=== PATIENT | male | born 1980 | race Caucasian/White ===

== ENCOUNTER 2019-08-22 18:40 | Inpatient (IN) | payer MEDICAID, OTHER ==
[~2019-08-22] VITALS: Ht 188 cm; Wt 146.0 kg
[2019-08-22] MEDS ORDERED: nitroGLYCERIN 0.4mg SUBLingual tab SL PRN (21:40)
[2019-08-22] MEDS ORDERED: potassium CL 10mEq/100ml bag 100 ML IV PRN ×2 (21:40)
[2019-08-22] MEDS ORDERED: ondansetron/PF 4mg/2ml inj IV PRN (21:40)
[2019-08-22] MEDS ORDERED: magnesium 2GM in 50ml NS 50 ML IV PRN (21:40)
[2019-08-22] MEDS ORDERED: mag hydrox/Alum hydrox/simeth 30ml oral suspension PO PRN (21:40)
[2019-08-22] MEDS ORDERED: magnesium 4gm in 100ml NS 100 ML IV PRN (21:40)
[2019-08-22] MEDS ORDERED: potassium Cl 20 mEq SR tablet PO PRN (21:40)
[2019-08-22] MEDS ORDERED: magnesium Cl slow-release 64mg tablet PO PRN (21:40)
[2019-08-22] MEDS ORDERED: magnesium hydroxide 30ml (MOM) UD suspension PO PRN (21:40)
[2019-08-22 21:45] VITALS: BP 96/67
[2019-08-22] MEDS ORDERED: FURO-149 PO (22:04)
[2019-08-22] MEDS ORDERED: RISP4TAB7 PO (22:04)
[2019-08-22] MEDS ORDERED: DOCU100C41 PO (22:04)
[2019-08-22] MEDS ORDERED: FLUT16SP2 BOTHNARES (22:04)
[2019-08-22] MEDS ORDERED: LISI2.5T2 PO (22:04)
[2019-08-22] MEDS ORDERED: PANT-47 PO (22:04)
[2019-08-22] MEDS ORDERED: PRED10TA23 PO (22:04)
[2019-08-22] MEDS ORDERED: METO25TA6 PO (22:04)
[2019-08-22] MEDS ORDERED: DIVA500T9 PO (22:04)
[2019-08-22] MEDS ORDERED: IBUP-1985 PO (22:04)
[2019-08-22] MEDS ORDERED: DIPH25CA52 PO (22:04)
[2019-08-22] MEDS ORDERED: DESM10SP NS (22:04)
[2019-08-22] MEDS ORDERED: MYCO500T PO (22:04)
[2019-08-22] MEDS ORDERED: docusate sod 100mg capsule PO PRN (23:10)
[2019-08-22] MEDS ORDERED: diphenhydrAMINE 25mg capsule PO PRN (23:10)
[2019-08-23 02:00] VITALS: BP 103/50
--- NOTE | 2019-08-23 02:42 | NUR ---
Dr. Gasca called and asked RN to add a Pro-BNP and PT/INR to pt AM draw. Also to make pt NPO for sx consult in AM.
[2019-08-23 05:37] LABS: ALBUMIN 3.1 G/DL (3.4-5.0); ANION GAP 5 (8-16); BLOOD UREA NITROGEN 22 MG/DL (7-18); BUN/CREATININE RATIO 8.9 (5.4-32.0); CALCIUM 9.9 MG/DL (8.5-10.1); CHLORIDE 93 MMOL/L (99-107); CREATININE 2.47 MG/DL (0.60-1.10); GLUCOSE 76 MG/DL (70-104); MAGNESIUM 2.1 MG/DL (1.5-2.4); POTASSIUM 3.4 MMOL/L (3.5-5.1); SODIUM 136 MMOL/L (135-145); TOTAL CARBON DIOXIDE 37.8 MMOL/L (24-32); eGFR 29 ML/MIN
[2019-08-23 06:00] VITALS: BP 132/63
--- NOTE | 2019-08-23 06:00 | NUR ---
Patient in room PCU 3012. I have received report from xenia pringle and had the opportunity to ask questions and assume patient care.
[2019-08-23 06:02] LABS: BASOPHILS % (AUTO) 0.6 % (0-1); EOSINOPHILS # (AUTO) 0.1 X10'3 (0-0.9); LYMPHOCYTES # (AUTO) 0.5 X10'3 (1.1-4.8); MEAN CORPUSCULAR VOLUME 76.4 FL (78-98); MONOCYTES # (AUTO) 0.8 X10'3 (0-0.9); NEUTROPHILS # (AUTO) 3.5 X10'3 (1.8-7.7); WHITE BLOOD COUNT 4.9 X10'3 (4.5-11.0)
[2019-08-23 06:05] LABS: EOSINOPHILS % (AUTO) 1.8 % (0-6); HEMATOCRIT 34.2 % (42.0-52.0); HEMOGLOBIN 11.1 g/dl (14.0-17.9); LYMPHOCYTES % (AUTO) 10.2 % (21-51); MEAN CORPUSCULAR HEMOGLOBIN 24.7 PG (27.0-31.0); MEAN CORPUSCULAR HGB CONC 32.4 g/dL (33.0-36.5); MEAN PLATELET VOLUME 9.1 FL (7.4-10.4); MONOCYTES % (AUTO) 16.8 % (2-12); NEUTROPHILS % (AUTO) 70.6 % (42-75); PLATELET COUNT 194 X10'3 (140-440); RED BLOOD COUNT 4.48 X10'6 (4.70-6.10); RED CELL DISTRIBUTION WIDTH 19.6 % (11.5-14.5)
--- NOTE | 2019-08-23 07:13 | NUR ---
Problems reprioritized. Patient report given, questions answered & plan of care reviewed with BRADY Faustin.
[2019-08-23] MEDS ORDERED: enoxaparin 40mg/0.4ml syringe SQ SCH (08:00)
[2019-08-23] MEDS: K and/or MAG REPLACEMENT MC SCH ×2 (08:00→20:00)
[2019-08-23] MEDS ORDERED: metoprolol tartrate 25mg tablet PO SCH (08:00)
[2019-08-23] MEDS: mycophenolate mofetil 250mg capsule PO SCH ×2 (08:59→20:16)
[2019-08-23] MEDS: furosemide 40mg tablet PO SCH (09:01)
[2019-08-23] MEDS: prednisone 10mg tablet PO SCH (09:02)
[2019-08-23] MEDS: pantoprazole 40mg Tablet.DR PO SCH (09:02)
[2019-08-23] MEDS: risperiDONE 2mg tablet PO SCH ×2 (09:03→20:15)
[2019-08-23] MEDS: lisinopril 2.5mg tablet PO SCH (09:04)
[2019-08-23] MEDS: potassium Cl 20 mEq SR tablet PO PRN ×3 (09:06→17:04)
[2019-08-23 11:00] VITALS: BP 88/47
[2019-08-23 15:00] VITALS: BP 89/68
--- NOTE | 2019-08-23 16:58 | NUR ---
PAGER ID: [phone] MESSAGE: DR. HANSEN, [id number]/MICHELLE, CAN I HAVE PT EVAL AND TREAT ORDER PLEASE? TIM [id number]. TY.
[2019-08-23 18:00] VITALS: BP 121/57
--- NOTE | 2019-08-23 18:15 | NUR ---
Problems reprioritized. Patient report given, questions answered & plan of care reviewed with BRADY RAY.
--- NOTE | 2019-08-23 18:50 | NUR ---
Patient in room PCU 3012. I have received report from Ramin ABREU and had the opportunity to ask questions and assume patient care.
[2019-08-23] MEDS: divalproex sod 250mg ER (24-hour) tablet PO SCH (20:15)
--- NOTE | 2019-08-23 20:27 | NUR ---
PAGER ID: [phone] MESSAGE: Emmett Gimenez [id number]: Pt reporting back pain. States he takes ibuprofen for it at home. -Kristina ABREU [id number]
[2019-08-23] MEDS ORDERED: traMADol 50MG tablet PO PRN (21:15)
[2019-08-23 22:00] VITALS: BP 103/46
[2019-08-24 02:00] VITALS: BP 105/56
[2019-08-24 05:13] LABS: ALBUMIN 3.1 G/DL (3.4-5.0); ANION GAP 5 (8-16); BASOPHILS % (AUTO) 0.7 % (0-1); BLOOD UREA NITROGEN 26 MG/DL (7-18); BUN/CREATININE RATIO 10.6 (5.4-32.0); CALCIUM 9.4 MG/DL (8.5-10.1); CHLORIDE 92 MMOL/L (99-107); CREATININE 2.46 MG/DL (0.60-1.10); EOSINOPHILS # (AUTO) 0.1 X10'3 (0-0.9); EOSINOPHILS % (AUTO) 1.4 % (0-6); GLUCOSE 63 MG/DL (70-104); HEMATOCRIT 34.7 % (42.0-52.0); HEMOGLOBIN 11.3 g/dl (14.0-17.9); LYMPHOCYTES # (AUTO) 0.5 X10'3 (1.1-4.8); LYMPHOCYTES % (AUTO) 10.2 % (21-51); MAGNESIUM 2.2 MG/DL (1.5-2.4); MEAN CORPUSCULAR HEMOGLOBIN 24.5 PG (27.0-31.0); MEAN CORPUSCULAR HGB CONC 32.6 g/dL (33.0-36.5); MEAN CORPUSCULAR VOLUME 75.3 FL (78-98); MEAN PLATELET VOLUME 9.2 FL (7.4-10.4); MONOCYTES # (AUTO) 1.1 X10'3 (0-0.9); MONOCYTES % (AUTO) 20.2 % (2-12); NEUTROPHILS # (AUTO) 3.6 X10'3 (1.8-7.7); NEUTROPHILS % (AUTO) 67.5 % (42-75); PLATELET COUNT 221 X10'3 (140-440); POTASSIUM 3.7 MMOL/L (3.5-5.1); SODIUM 132 MMOL/L (135-145); TOTAL CARBON DIOXIDE 34.8 MMOL/L (24-32); WHITE BLOOD COUNT 5.4 X10'3 (4.5-11.0); eGFR 29 ML/MIN
--- NOTE | 2019-08-24 06:12 | NUR ---
Patient in room PCU 3012. I have received report from BRADY RAY and had the opportunity to ask questions and assume patient care.
--- NOTE | 2019-08-24 06:14 | NUR ---
Problems reprioritized. Patient report given, questions answered & plan of care reviewed with Ramin RN.
[2019-08-24] MEDS: K and/or MAG REPLACEMENT MC SCH ×2 (06:53→19:17)
--- NOTE | 2019-08-24 07:01 | NUR ---
REFUSED 6AM VS.
[2019-08-24 07:15] VITALS: BP 103/51
[2019-08-24] MEDS: mycophenolate mofetil 250mg capsule PO SCH ×2 (08:11→20:30)
[2019-08-24] MEDS: furosemide 40mg tablet PO SCH (08:12)
[2019-08-24] MEDS: pantoprazole 40mg Tablet.DR PO SCH (08:13)
[2019-08-24] MEDS: prednisone 10mg tablet PO SCH (08:13)
[2019-08-24] MEDS: risperiDONE 2mg tablet PO SCH ×2 (08:14→20:31)
[2019-08-24] MEDS: lisinopril 2.5mg tablet PO SCH (08:14)
--- NOTE | 2019-08-24 10:21 | NUR ---
WOUND INFECTION EDUCATION PROVIDED BY WOUND CARE 1. Patient instructed to call their primary doctor, or go the ED immediately if any of the following symptoms occur: * Increased pain in wound * Increase in drainage from the wound * Redness in the skin surrounding the wound * Warmth in the skin surrounding the wound * Bleeding from the wound * Temperature of 101 or greater 2. If any of these occur while in the hospital tell a nurse immediately. Addendum: 08/24/19 at 1021 by Honey Vasquez RN Amended: Links added.
[2019-08-24 11:00] VITALS: BP 95/47
[2019-08-24 15:00] VITALS: BP 88/48
[2019-08-24 18:00] VITALS: BP 90/47
--- NOTE | 2019-08-24 18:29 | NUR ---
Patient in room PCU 3012. I have received report from Ramin ABREU and had the opportunity to ask questions and assume patient care.
--- NOTE | 2019-08-24 18:30 | NUR ---
Problems reprioritized. Patient report given, questions answered & plan of care reviewed with BRADY RAY.
[2019-08-24] MEDS: mineral oil/petrolatum, white cream 113gm jar TP SCH (20:00)
[2019-08-24] MEDS: divalproex sod 250mg ER (24-hour) tablet PO SCH (20:31)
[2019-08-24 22:00] VITALS: BP 119/69
[2019-08-25 02:00] VITALS: BP 91/54
[2019-08-25 04:49] LABS: BASOPHILS % (AUTO) 0.5 % (0-1); EOSINOPHILS # (AUTO) 0.1 X10'3 (0-0.9); HEMATOCRIT 35.3 % (42.0-52.0); HEMOGLOBIN 11.3 g/dl (14.0-17.9); LYMPHOCYTES # (AUTO) 0.5 X10'3 (1.1-4.8); LYMPHOCYTES % (AUTO) 9.4 % (21-51); MEAN CORPUSCULAR HEMOGLOBIN 24.6 PG (27.0-31.0); MEAN CORPUSCULAR VOLUME 76.8 FL (78-98); MEAN PLATELET VOLUME 8.3 FL (7.4-10.4); MONOCYTES % (AUTO) 19.9 % (2-12); NEUTROPHILS # (AUTO) 3.4 X10'3 (1.8-7.7); NEUTROPHILS % (AUTO) 68.2 % (42-75); PLATELET COUNT 253 X10'3 (140-440); RED CELL DISTRIBUTION WIDTH 19.5 % (11.5-14.5)
[2019-08-25 04:58] LABS: ALBUMIN 3.2 G/DL (3.4-5.0); ANION GAP 2 (8-16); BLOOD UREA NITROGEN 31 MG/DL (7-18); BUN/CREATININE RATIO 12.7 (5.4-32.0); CALCIUM 9.8 MG/DL (8.5-10.1); CHLORIDE 92 MMOL/L (99-107); CREATININE 2.44 MG/DL (0.60-1.10); GLUCOSE 71 MG/DL (70-104); MAGNESIUM 2.6 MG/DL (1.5-2.4); POTASSIUM 3.9 MMOL/L (3.5-5.1); SODIUM 132 MMOL/L (135-145); TOTAL CARBON DIOXIDE 38.3 MMOL/L (24-32); eGFR 30 ML/MIN
[2019-08-25 06:00] VITALS: BP 96/52
[2019-08-25 06:06] LABS: ANISOCYTOSIS 2+; GIANT PLATELET FEW; LARGE PLATELETS FEW; MICROCYTOSIS 1+; PLATELET ESTIMATE NORMAL; TOTAL CELLS COUNTED 100; TOXIC VACUOLATION FEW
--- NOTE | 2019-08-25 06:14 | NUR ---
Problems reprioritized. Patient report given, questions answered & plan of care reviewed with Ramin RN.
--- NOTE | 2019-08-25 06:33 | NUR ---
Patient in room PCU 3012. I have received report from xenia john and had the opportunity to ask questions and assume patient care.
[2019-08-25] MEDS: furosemide 40mg tablet PO SCH (07:46)
[2019-08-25] MEDS: mineral oil/petrolatum, white cream 113gm jar TP SCH ×2 (07:46→20:01)
[2019-08-25] MEDS: lisinopril 2.5mg tablet PO SCH (07:46)
[2019-08-25] MEDS: mycophenolate mofetil 250mg capsule PO SCH ×2 (07:53→20:00)
[2019-08-25] MEDS: pantoprazole 40mg Tablet.DR PO SCH (07:54)
[2019-08-25] MEDS: prednisone 10mg tablet PO SCH (07:54)
[2019-08-25] MEDS: risperiDONE 2mg tablet PO SCH ×2 (07:54→19:59)
[2019-08-25] MEDS: K and/or MAG REPLACEMENT MC SCH ×2 (08:00→20:00)
--- NOTE | 2019-08-25 08:00 | NUR ---
IN TO ADM MEDS, FLUSH PIV. NO PIV. STATES "IT CAME OUT LAST NIGHT WHEN I WAS TURNING IN BED" NO SIGN OF IV CATH, NO SX OF ACTIVE BLEEDING. NO MENTIONED WITH REPORT.
[2019-08-25] MEDS ORDERED: desmopressin 0.1mg/ml nasal spray 5ml btl NS SCH (09:00)
--- NOTE | 2019-08-25 09:22 | NUR ---
PAGED PICC RN:PLEASE CALL TIM AT [phone]. TY
[2019-08-25 11:00] VITALS: BP 102/63
[2019-08-25 15:00] VITALS: BP 113/55
[2019-08-25 18:00] VITALS: BP 111/56
--- NOTE | 2019-08-25 18:15 | NUR ---
Problems reprioritized. Patient report given, questions answered & plan of care reviewed with xenia john.
--- NOTE | 2019-08-25 18:24 | NUR ---
Patient in room PCU 3012. I have received report from Ramin ABREU and had the opportunity to ask questions and assume patient care.
[2019-08-25] MEDS: divalproex sod 250mg ER (24-hour) tablet PO SCH (20:00)
--- NOTE | 2019-08-25 21:18 | NUR ---
Problems reprioritized. Patient report given, questions answered & plan of care reviewed with Avis ABREU.
[2019-08-25 23:00] VITALS: BP 121/64
--- NOTE | 2019-08-25 23:00 | NUR ---
AGREE WITH PREVIOUS ASSESSMENT PT OFFERS NO C/O'S AT THIS TIME
[2019-08-26 03:00] VITALS: BP 151/102
[2019-08-26 06:00] VITALS: BP 119/59
[2019-08-26 06:20] LABS: BASOPHILS % (AUTO) 0.9 % (0-1); EOSINOPHILS # (AUTO) 0.1 X10'3 (0-0.9); EOSINOPHILS % (AUTO) 2.5 % (0-6); HEMOGLOBIN 11.6 g/dl (14.0-17.9); LYMPHOCYTES # (AUTO) 0.5 X10'3 (1.1-4.8); LYMPHOCYTES % (AUTO) 10.4 % (21-51); MEAN CORPUSCULAR VOLUME 75.7 FL (78-98); MEAN PLATELET VOLUME 8.4 FL (7.4-10.4); MONOCYTES # (AUTO) 0.8 X10'3 (0-0.9); MONOCYTES % (AUTO) 18.6 % (2-12); NEUTROPHILS % (AUTO) 67.6 % (42-75); PLATELET COUNT 224 X10'3 (140-440); RED BLOOD COUNT 4.63 X10'6 (4.70-6.10); RED CELL DISTRIBUTION WIDTH 19.9 % (11.5-14.5); WHITE BLOOD COUNT 4.5 X10'3 (4.5-11.0)
[2019-08-26 06:27] LABS: ALBUMIN 3.3 G/DL (3.4-5.0); ANION GAP 3 (8-16); BLOOD UREA NITROGEN 29 MG/DL (7-18); BUN/CREATININE RATIO 17.4 (5.4-32.0); CALCIUM 10.2 MG/DL (8.5-10.1); CHLORIDE 89 MMOL/L (99-107); CREATININE 1.67 MG/DL (0.60-1.10); GLUCOSE 73 MG/DL (70-104); MAGNESIUM 2.1 MG/DL (1.5-2.4); POTASSIUM 3.7 MMOL/L (3.5-5.1); SODIUM 129 MMOL/L (135-145); TOTAL CARBON DIOXIDE 37.1 MMOL/L (24-32); eGFR 46 ML/MIN
--- NOTE | 2019-08-26 06:36 | NUR ---
Patient in room PCU 3012. I have received report from BRADY Albarran and had the opportunity to ask questions and assume patient care. Patient currently sitting up in chair at bedside, no acute distress, will continue to monitor.
[2019-08-26 07:37] LABS: ANISOCYTOSIS 2+; MICROCYTOSIS 1+; PLATELET ESTIMATE NORMAL
[2019-08-26] MEDS: lisinopril 2.5mg tablet PO SCH (07:47)
[2019-08-26] MEDS: risperiDONE 2mg tablet PO SCH ×2 (07:48→19:56)
[2019-08-26] MEDS: prednisone 10mg tablet PO SCH (07:48)
[2019-08-26] MEDS: pantoprazole 40mg Tablet.DR PO SCH (07:48)
[2019-08-26] MEDS: furosemide 40mg tablet PO SCH (07:48)
[2019-08-26] MEDS: mycophenolate mofetil 250mg capsule PO SCH ×2 (07:49→19:56)
[2019-08-26] MEDS: heparin, porcine 5000 units/ml vial SQ SCH ×2 (07:49→19:58)
[2019-08-26] MEDS: K and/or MAG REPLACEMENT MC SCH ×2 (07:57→19:14)
[2019-08-26] MEDS: mineral oil/petrolatum, white cream 113gm jar TP SCH ×2 (07:57→19:57)
[2019-08-26] MEDS ORDERED: NITR0.4T51 SL (08:54)
[2019-08-26 11:00] VITALS: BP 118/73
[2019-08-26 15:20] VITALS: BP 97/50
--- NOTE | 2019-08-26 17:37 | NUR ---
Received order for patient to discharge to home. IV removed catheter tip intact, hemostasis achieved, telemetry removed, patient dressed independently, belongings gathered, patient taken to lobby via wheelchair, mariahb to pick patient up @1730 per [facility] arrangement. Patient stable at time of discharge.
--- NOTE | 2019-08-26 17:46 | NUR ---
called [facility] and [facility] back when patient's ride did not show up, they say [facility] called and said they could not accomodate the ride but we did not receive that call. They are trying to find an alternative ride.
[2019-08-26 18:00] VITALS: BP 86/42
--- NOTE | 2019-08-26 18:14 | NUR ---
Problems reprioritized. Patient report given, questions answered & plan of care reviewed with BRADY Acevedo.
--- NOTE | 2019-08-26 18:29 | NUR ---
Patient in room PCU 3012. I have received report from Rhianna ABREU and had the opportunity to ask questions and assume patient care.
[2019-08-26] MEDS: divalproex sod 250mg ER (24-hour) tablet PO SCH (20:01)
--- NOTE | 2019-08-26 20:56 | NUR ---
Pt discharged. Received discharge instructions. IV removed. Advised pt about follow up information. Provided education regarding cardiac.
== END 2019-08-26 20:57 | disposition home or self-care (01) | DRG 201 ==
LOC: PCU 3S 21:24 → UNDODISIN 08-26 17:39
PROVIDERS: ADMIT Family Medicine; ATTEND Family Medicine
DX: I49.5 Sick sinus syndrome (principal); I50.33 Acute on chronic diastolic (congestive) heart failure; E66.01 Morbid (severe) obesity due to excess calories; E87.1 Hypo-osmolality and hyponatremia; I13.0 Hypertensive heart and chronic kidney disease with heart failure and stage 1 through stage 4 chronic kidney disease, or unspecified chronic kidney disease; N18.3 Chronic kidney disease, stage 3 (moderate); D86.89 Sarcoidosis of other sites; G47.30 Sleep apnea, unspecified; F17.210 Nicotine dependence, cigarettes, uncomplicated; G47.33 Obstructive sleep apnea (adult) (pediatric); D53.9 Nutritional anemia, unspecified; G40.909 Epilepsy, unspecified, not intractable, without status epilepticus; I45.9 Conduction disorder, unspecified; I89.0 Lymphedema, not elsewhere classified; Z79.899 Other long term (current) drug therapy; Z68.41 Body mass index [BMI] 40.0-44.9, adult; Z88.5 Allergy status to narcotic agent
CPT/HCPCS: 36415; 76937; 80048; 82948; 83735; 83880; 85025; 85610; 87081; 97116; 97162; G0378; J1644; J1650; J7512; J7517